=== PATIENT | female | born 1985 | race Caucasian/White ===

== ENCOUNTER 2025-01-26 07:35 | Emergency (ER) | payer SELFPAY ==
[2025-01-26 07:38] VITALS: BP 165/103
--- NOTE | 2025-01-26 07:47 | ED.GENMED ---
History of Present Illness
General
Chief Complaint: Breathing Problem
Source: patient
Exam Limitations: none
Time Seen by Provider: 01/26/25 07:39
History of Present Illness
History of Present Illness:
39-year-old female presents with increasing shortness of breath. History of asthma. She states she is having an asthma attack. No chest pain. She is seen at the urgent care last week and just finished a 5-day course of prednisone. She has been
using her inhalers and most recently used a 10 minutes prior to arrival. She denies any significant relief with her inhaler. She states she is air hungry.
Past History
Past History
ED Past Medical History: Asthma
ED Past Surgical History: None
Social History
Tobacco: Former smoker
Alcohol: Occasional
Drug: None
Personal: Single
Living: with family
Family History
Family History: Other (Noncontributory)
Phy Exam
Physical Exam
Physical Exam:
General: Well-appearing female with increased work of breathing
HEENT: Normocephalic atraumatic
Heart: Tachycardic but regular
Lungs: Diffuse inspiratory and expiratory wheeze
Extremities: No cyanosis
Course
Orders/Labs/Results
Orders:
Orders
01/26/25 07:46
Dexamethasone Sod Phosphate [Decadron] 10 mg IV NOW STA
Ipratropium/Albuterol Sulfate [Duoneb] 3 ml INH R NOW STA
CR Chest Portable - 1 View Urgent
Comment:
Reason For Exam: sob
Reason Study Needs to be Portable: Patient Unstable
01/26/25 09:15
Ipratropium/Albuterol Sulfate [Duoneb] 3 ml INH R NOW ONE
Vital Signs
Initial and Last Documented VS:
Initial Vital Signs
Temp Pulse Resp Pulse Ox
98.4 F 121 20 95
01/26/25 07:36 01/26/25 07:36 01/26/25 07:36 01/26/25 07:36
Last Documented Vital Signs
Temp Pulse Resp BP Pulse Ox
98.4 F 92 13 156/103 94
01/26/25 07:36 01/26/25 11:15 01/26/25 11:15 01/26/25 11:00 01/26/25 11:15
MDM/Problems Addressed
Differential Diagnosis Includes:
Shortness of breath. Differential could include acute asthma attack versus bronchitis versus pneumonia. No risk factors for PE
X-ray pending but will order DuoNeb and Decadron.
*Pulse Oximetry
SaO2: 95
Oxygen Mode of Delivery: Room air
*Critical Care Note
Total Time (30-74mins, 75-104mins- exclusive of procedures): Not Applicable
Update Note
Update Note:
Patient given DuoNeb x 2 and feels much better. No further respiratory distress lungs are clear upon reassessment. Not hypoxic. Will send patient home with nebulizer and nebulizer solution. Will also do 5 more days of steroid. No indication for
admission
ED Attending Note
-
Portions of this chart may have been created with voice recognition software.� Occasional wrong word or��sound alike� substitutions may have occurred due to the inherent limitations of voice recognition software.
Discharge Plan
Departure
Patient Disposition: Home (Routine Discharge)
Date of Disposition: 01/26/25
Time of Disposition: 11:44
Patient with high blood pressure during this ER visit?: No
Discharge Problem:
Asthma exacerbation
Instructions: Asthma, Adult (DC)
Prescriptions:
New
ipratropium-albuterol 0.5 mg-3 mg(2.5 mg base)/3 mL solution for nebulization
3 ml inhalation Q6H PRN (Reason: shortness of breath) Qty: 90 0RF
prednisone 50 mg tablet
50 mg PO DAILY Qty: 5 0RF
No Action
albuterol sulfate [Ventolin HFA] 18 GM HFA aerosol inhaler
18 gm IH Q4HPRN PRN (Reason: wheezing) Qty: 1 0RF
Prednisone
1 tab PO BID
Patient Comments:
Unknown strength
azithromycin 250 MG tablet
250 mg PO DAILY Qty: 6 0RF
prednisone 50 MG tablet
50 mg PO DAILY Qty: 5 0RF
hydrocodone-acetaminophen 1 TABLET tablet
1 tab PO Q4HPRN PRN (Reason: pain) Qty: 12 0RF
cyclobenzaprine 10 MG tablet
10 mg PO TIDPRN PRN (Reason: muscles spasms) Qty: 30 0RF
Referrals:
NONE,* [Family Provider, Internal Medicine]
Activity Restrictions/Additional Instructions:
Use nebulizer as needed. Use steroid as directed. Rest. Return if worse otherwise follow-up with your doctor
Interventions
Interventions:
*Risk Screen - Suicide Last Done: 01/26/25 08:20
*General Assessment Last Done: 01/26/25 08:20
*Neglect/Abuse Screening Last Done: 01/26/25 08:20
*ED- Fall Risk Assessment Last Done: 01/26/25 08:20
*ED COVID-19 Vaccine History Last Done: 01/26/25 08:20
ED- Cardiac Assessment Last Done: 01/26/25 08:21
ED- Pulmonary Assessment Last Done: 01/26/25 08:21
Discharge Date and Time
Print Language: [place] CITIZEN
[2025-01-26] MEDS: DECADRON 10 MG IV (08:16)
[2025-01-26] MEDS: DUONEB 3 ML INH ×2 (08:16→09:22)
[2025-01-26 08:17] VITALS: BP 140/101
[2025-01-26 08:19] VITALS: BMI 43.1
[2025-01-26 09:00] VITALS: BP 153/97
[2025-01-26 10:00] VITALS: BP 162/106
[2025-01-26 11:00] VITALS: BP 156/103
== END 2025-01-26 12:02 | disposition home or self-care (01) ==
LOC: EMR 07:35
PROVIDERS: EMERGENCY PHYSICIAN Student in an Organized Health Care Education/Training Program
DX: J45.901 Unspecified asthma with (acute) exacerbation (principal); Z87.891 Personal history of nicotine dependence
CPT/HCPCS: 96374; 94640; 99284; 71045

== ENCOUNTER 2025-02-13 06:31 | Inpatient (IN) | payer OTHER, SELFPAY ==
[2025-02-12 22:44] VITALS: BP 172/121
[2025-02-12 23:12] VITALS: BMI 41.3
[2025-02-12 23:14] VITALS: BP 140/102
[2025-02-12] MEDS: DUONEB 3 ML INH (23:20)
[2025-02-13] VITALS (16 sets, daily range): BP systolic 134–152; BP diastolic 78–113; BMI 41.5
[2025-02-13] MEDS: DECADRON 10 MG PO (01:03)
[2025-02-13] MEDS: VENTOLIN NEBULES 10 MG INH (01:05)
[2025-02-13] MEDS: MAGNESIUM SULFATE 100 IV (03:12)
[2025-02-13] MEDS: DUONEB 3 ML INH ×6 (03:21→20:32)
[2025-02-13] MEDS: BRETHINE 250 MCG SC (03:32)
[2025-02-13 03:35] LABS: Hematocrit 38.3 % (37.0-47.0); Hemoglobin 13.3 g/dL (12.0-16.0); Mean Corp Hgb Conc. 34.7 g/dL (33.0-37.0); Mean Corpuscular Volume 89.5 fL (81.0-99.0); Nucleated Red Blood Cells % 0 %; Platelet Count 298 10^3/uL (130-400); Red Cell Dist. Width 13.3 % (11.5-14.5)
[2025-02-13 03:56] LABS: ALT (SGPT) 19 U/L (0-35); AST (SGOT) 20 U/L (14-36); Albumin 4.3 g/dl (3.5-5.0); Alkaline Phosphatase 62 U/L (38-126); Blood Urea Nitrogen 15 mg/dl (7-17); Calcium 9.4 mg/dl (8.4-10.2); Carbon Dioxide 18 mmol/L (22-30); Chloride 112 mmol/L (98-107); Estimated Creatinine Clearance > 125 ml/min; Glucose 137 mg/dl (70-99); Potassium 4.2 mmol/L (3.5-5.1); Sodium 139 mmol/L (135-145); Total Protein 7.1 g/dl (6.3-8.2); eGFR > 60.00
--- NOTE | 2025-02-13 05:31 | ED.GENMED ---
History of Present Illness
General
Chief Complaint: Breathing Problem
Source: patient
Time Seen by Provider: 02/13/25 00:14
History of Present Illness
History of Present Illness:
Note:
CHIEF COMPLAINT(S)
Shortness of breath with wheezing.
HISTORY OF PRESENT ILLNESS
The patient is a 39-year-old female with a known history of asthma who presents with complaints of shortness of breath and wheezing. She reports using a nebulizing machine and still has some medications left for it. Approximately two weeks ago, the
patient was prescribed prednisone following a visit to an emergency department and prior to that was given prednisone at an urgent care visit. The patient denies any medical problems and reports no recent fever or chills. Currently, she experiences
expiratory wheezing with very faint inspiratory wheezing, and notes discomfort primarily during the inspiratory phase. She also describes a sensation of chest tightness that feels muscular in nature.
PHYSICAL EXAM
- General: Alert, no acute distress.
- Skin: Warm, dry.
- Head: Normocephalic, atraumatic.
- Neck: Supple, trachea midline.
- Eye Ears, nose, mouth and throat: Oral mucosa moist.
- Cardiovascular: Normal peripheral perfusion, No edema.
- Respiratory: Expiratory wheezing with faint inspiratory wheezing observed; respirations are non-labored.
- Gastrointestinal: Abdomen nondistended
- Back: Normal range of motion, Normal alignment.
- Musculoskeletal: Normal range of motion, normal strength.
- Neurological: Alert and oriented to person, place, time, and situation, No focal neurological deficit observed.
- Psychiatric: Cooperative, appropriate mood & affect.
PLAN
The patient was advised to undergo a prolonged breathing treatment with a nebulizer for one hour. Steroids are to be administered to help reduce inflammation and improve breathing. Follow-up care is recommended to assess the effectiveness of the
treatment.
DIFFERENTIAL DIAGNOSIS
The Differential Diagnosis includes, in no particular order and is not limited to:
1. Asthma exacerbation
Disposition:
SUMMARY OF ENCOUNTER
A 39-year-old female with a known history of asthma presented with acute shortness of breath and wheezing. She received multiple breathing treatments in the emergency department. A chest x-ray was performed to rule out pneumonia, and it returned
negative. Despite treatments, the patient continued to experience wheezing.
DISPOSITION
The patient is to be admitted to the hospitalist service for further management.
ASSESSMENT
The patient is experiencing an acute asthma exacerbation.
INDEPENDENT REVIEW OF LABS AND INTERPRETATION OF TESTS
My independent chest x-ray interpretation shows no evidence of pneumonia.
PATIENT EDUCATION AND COUNSELING
The patient was informed about her acute asthma exacerbation and the need for hospitalization for further treatment and monitoring.
MEDICAL DECISION MAKING
-Complexity of Data Reviewed: Chronic conditions affecting care include asthma. Differential diagnosis includes asthma exacerbation, COPD, bronchitis, pneumonia, allergic reaction, upper respiratory tract infection, heart failure, pulmonary
embolism, GERD, and vocal cord dysfunction.
-Data:
Category 1
My independent interpretation of the chest x-ray shows no evidence of pneumonia.
-Risk:
Escalation of care, including admission, was necessary due to the acute asthma exacerbation and persistent wheezing despite treatment. Hospitalization is required to manage the patients condition effectively and monitor for potential complications.
DIAGNOSIS
Asthma, unspecified - ICD-10 Code: J45.909
Past History
Past History
ED Past Medical History: Asthma
ED Past Surgical History: None
Social History
Tobacco: Former smoker
Alcohol: Occasional
Drug: None
Personal: Single
Living: with family
Family History
Family History: Other (Noncontributory)
Phy Exam
Physical Exam
Physical Exam:
.
Course
Orders/Labs/Results
Orders:
Orders
02/12/25 23:18
Ipratropium/Albuterol Sulfate [Duoneb] 3 ml .ROUTE .STK-MED ONE
02/12/25 23:19
Ipratropium/Albuterol Sulfate [Duoneb] 3 ml INH R NOW ONE
02/13/25 00:50
Albuterol Sulfate [Ventolin Nebules] 10 mg INH R NOW STA
Dexamethasone Pf [Decadron] 10 mg PO NOW STA
02/13/25 02:50
Magnesium Sulfate 1 G/D5w [Magnesium Sulfate] 1 gm in 100 ml IV NOW
02/13/25 02:52
Ipratropium/Albuterol Sulfate [Duoneb] 3 ml INH R NOW ONE
Terbutaline [Brethine] 250 mcg SC NOW STA
02/13/25 02:56
CR Chest - 2 Views Urgent
Comment:
Reason For Exam: dyspnea
02/13/25 03:20
Terbutaline [Brethine] 250 mcg SC NOW STA
02/13/25 03:25
Complete Blood Count/With Diff Urgent
Comprehensive Metabolic Panel Urgent
02/13/25 05:13
Ipratropium/Albuterol Sulfate [Duoneb] 3 ml .ROUTE .STK-MED ONE
02/13/25 05:17
Ipratropium/Albuterol Sulfate [Duoneb] 3 ml INH R NOW ONE
Abnormal Lab Results
02/13/25
03:25
WBC 13.5 H 10^3/uL
(4.8-10.8)
MCH 31.1 H pg
(27.0-31.0)
Abs Immat Gran (auto) 0.1 H 10^3/uL
(0-0.05)
Absolute Neuts (auto) 11.5 H 10^3/uL
(1.4-6.5)
Absolute Lymphs (auto) 1.1 L 10^3/uL
(1.2-3.4)
Immature Gran % 0.6 H %
(0-0.5)
Neutrophils % 85.0 H %
(42.2-75.2)
Lymphocytes % 8.0 L %
(20.5-51.1)
Chloride 112 H mmol/L
(98-107)
Carbon Dioxide 18 L mmol/L
(22-30)
Glucose 137 H mg/dl
(70-99)
02/13/25 03:25
02/13/25 03:25
Vital Signs
Initial and Last Documented VS:
Initial Vital Signs
Temp Pulse Resp BP Pulse Ox
97.7 F 110 24 172/121 96
02/12/25 22:44 02/12/25 22:44 02/12/25 22:44 02/12/25 22:44 02/12/25 22:44
Last Documented Vital Signs
Temp Pulse Resp BP Pulse Ox
97.7 F 112 22 140/89 94
02/12/25 22:44 02/13/25 05:00 02/13/25 05:00 02/13/25 05:06 02/13/25 05:05
*Pulse Oximetry
SaO2: 94
Oxygen Mode of Delivery: Room air
Patient hypoxic: no
*Critical Care Note
Total Time (30-74mins, 75-104mins- exclusive of procedures): 33
comment:
Critical care statement: A total of 33 minutes of critical care time was provided for this patient. This time is separate from time utilized to perform the aforementioned documented procedures. Aggregate critical care time includes only time
during which I was engaged in work directly related to the patient's care, as described above, whether at the bedside or elsewhere in the Emergency Department.
ED Attending Note
-
Portions of this chart may have been created with voice recognition software.� Occasional wrong word or��sound alike� substitutions may have occurred due to the inherent limitations of voice recognition software.
Discharge Plan
Departure
Patient Disposition: Admit
Date of Disposition: 02/13/25
Time of Disposition: 05:36
Presentation/result/management discussed w/ accepting MD/DO: Hospitalist
Condition: Good
Discharge Problem:
Acute asthma exacerbation
Prescriptions:
No Action
albuterol sulfate [Ventolin HFA] 18 GM HFA aerosol inhaler
18 gm IH Q4HPRN PRN (Reason: wheezing) Qty: 1 0RF
albuterol sulfate
1 dose inhalation Q6H PRN (Reason: WHEEZING )
Rx Instructions:
ALBUTEROL NEB
Referrals:
Susan Beltran MD [Family Provider, Family Practice]
Interventions
Interventions:
*Risk Screen - Suicide Last Done: 02/12/25 22:44
*General Assessment Last Done: 02/12/25 23:12
*Neglect/Abuse Screening Last Done: 02/12/25 22:44
*ED- Fall Risk Assessment Last Done: 02/12/25 23:12
*ED COVID-19 Vaccine History Last Done: 02/12/25 23:12
ED- Cardiac Assessment Last Done: 02/12/25 23:15
ED- Pulmonary Assessment Last Done: 02/12/25 23:15
Discharge Date and Time
Print Language: KAZAKH
--- NOTE | 2025-02-13 06:06 | HPS.HSE ---
Family Physician
-
Family Physician: Suasn Beltran
Chief Complaint
-
SOB
History of Present Illness
Patient is a 39y F with PMH significant for asthma and obesity who presents to ED complaining of SOB. Patient states that her symptoms started initially in December of this year. She has only had a rescue inhaler which she states she 'lives on' with
frequent use throughout the day. Since December she has had more severe and persistent symptoms. She has had cough that is occasionally productive of white / yellow mucus. No fevers / chills. No known sick contacts. She was seen at Urgent Care 01/21
and started on steroids. She was seen here in the ED on 01/26 and steroids were extended for another 5 days.
Patient has had ongoing symptoms since that time.
This evening she had severe SOB that did not improve with albuterol. She presented to the ED for further evaluation.
Prior history of cigarette smoking - quit 10-20 years ago. Currently smokes THC daily on average - last smoked about 2 days ago.
Patient feels slightly improved from initial arrival - but reports significant SOB with even the slightest movement / activity here in the ED.
Medical History
Past Medical History
Past Medical History: Reports Other
Additional Past Medical History:
Asthma
Obesity
Past Surgical History: Reports Other
Additional Past Surgical History:
Hand Surgery x 2
Social History
Tobacco: Former Smoker (Quit smoking cigarettes 10-20 years ago.)
Alcohol: Daily (6 beers daily on average. Last drink was 1 week ago.)
Drug: Marijuana (Daily use typically. Last smoked 2 days ago.)
Personal:
Living: With Family
Family History
Family History: Not pertinent
Allergies / Home Medications
Allergies reflects when Allergies were last updated in [facility].
Home Medications with original date entered in [facility]
Allergy/Medication List:
Allergies
Allergy/AdvReac Type Severity Reaction Status Date / Time
NKA - No Known Allergies Allergy Unknown Uncoded 02/12/25 22:44
Home Medications
albuterol sulfate 90 mcg/actuation aerosol inhaler (Ventolin HFA) 18 gm IH Q4HPRN PRN wheezing ##1 07/21/11
albuterol sulfate 1 dose inhalation Q6H PRN WHEEZING 02/12/25
Review of Systems
-
History Source: Patient
A 12 point ROS was completed and negative except as noted: Yes
Constitutional: Reports Fatigue; Denies Fever or Chills
EENT: Denies Sore Throat
Respiratory: Reports Cough and Trouble Breathing
Cardiac: Reports Palpitations; Denies Chest Pain
Abdomen/GI: Denies Abdominal Pain, Nausea, Vomiting or Diarrhea
: Denies Dysuria or Frequency
Musculoskeletal: Denies Joint Pain or Edema
Neurological: Denies Dizzy or Headache
Psych: Denies Depression
Physical Exam
Vital Signs
Vital Signs
Temp Pulse Resp BP Pulse Ox
97.7 F 112 22 140/89 94
02/12/25 22:44 02/13/25 05:00 02/13/25 05:00 02/13/25 05:06 02/13/25 05:32
Physical Exam
General: Other (39y F in mild distress due to dyspnea.)
HEENT: Moist mucous membranes and PERRLA
Respiratory: Other (Diffuse inspratory and expiratory wheezes. No rales / rhonchi.)
Cardiac: S1/S2; No Murmur
GI: Soft, Non Tender, Non Distended and Normal Bowel Sounds
Musculoskeletal: No Clubbing, No Cyanosis and No Edema
Neuro: AO x 3
Laboratory Results
-
02/13/25 03:25
02/13/25 03:25
Laboratory Results
Total Bilirubin 0.5 mg/dl (0.2-1.3) 02/13/25 03:25
AST 20 U/L (14-36) 02/13/25 03:25
ALT 19 U/L (0-35) 02/13/25 03:25
Alkaline Phosphatase 62 U/L (38-126) 02/13/25 03:25
Impression/Plan
-
A/P: Patient is a 39y F with PMH significant for asthma and obesity who presents to ED complaining of SOB.
Asthma with Acute Exacerbation
- Admit for further evaluation and treatment.
- Continue IV steroids, nebs ATC and PRN.
- O2 support as needed.
- Follow for clinical improvement.
- Counseled on smoking cessation (including THC).
- Patient would likely benefit from maintenance inhaler regimen, etc.
- Pulmonary consulted for further evaluation / outpatient follow-up.
Alcohol Use Disorder
- Patient reports usually drinking 6 beers per day.
- Last drink was one week ago (due to SOB issues).
- Monitor MSAS scores, but lower risk for withdrawal one week from last EtOH.
- Patient reports that EtOH is a trigger for her asthma and she should continue to abstain.
Morbid Obesity due to excess calories
- Affects all aspects of care.
- Encourage healthy diet and increased activity with goal of weight loss.
DVT Prophylaxis: Lovenox
Code Status: Full
--- NOTE | 2025-02-13 08:10 | W.PN.HOSP.TC ---
Today's Communication/Plan
-
See plan
Assessment / Plan
Assessment / Plan
Physical Exam
General: Other (39y F in mild distress due to dyspnea.)
HEENT: Moist mucous membranes and PERRLA
Respiratory: Other (Diffuse inspratory and expiratory wheezes. No rales / rhonchi.)
Cardiac: S1/S2; No Murmur
GI: Soft, Non Tender, Non Distended and Normal Bowel Sounds
Musculoskeletal: No Clubbing, No Cyanosis and No Edema
Neuro: AO x 3
A/P:
Asthma with Acute Exacerbation
- Admit for further evaluation and treatment.
- Continue IV steroids, nebs ATC and PRN.
- O2 support as needed.
- Follow for clinical improvement.
- Counseled on smoking cessation (including THC).
- Patient would likely benefit from maintenance inhaler regimen, etc.
- Pulmonary consulted for further evaluation / outpatient follow-up.
- Add Pulmicort inhaler
- Checked influenza and COVID-19 and negative
Alcohol Use Disorder
- Patient reports usually drinking 6 beers per day.
- Last drink was one week ago (due to SOB issues).
- Monitor MSAS scores, but lower risk for withdrawal one week from last EtOH.
- Patient reports that EtOH is a trigger for her asthma and she should continue to abstain.
Morbid Obesity due to excess calories
- Affects all aspects of care.
- Encourage healthy diet and increased activity with goal of weight loss.
DVT Prophylaxis: Lovenox
Code Status: Full
Anticipated Discharge: 24 - 48 hours
Subjective/Interval History
-
Date of Service: February 13, 2025
Patient still having some cough and shortness of breath.
Objective Data
-
Labs:
Laboratory Results
02/13/25
03:25
WBC 13.5 H
Hgb 13.3
Hct 38.3
Plt Count 298
Sodium 139
Potassium 4.2
Chloride 112 H
Carbon Dioxide 18 L
BUN 15
Creatinine 0.6
Glucose 137 H
Calcium 9.4
Total Bilirubin 0.5
AST 20
ALT 19
Alkaline Phosphatase 62
Vital Signs:
Vital Signs
Temp Pulse Resp BP Pulse Ox
97.7 F 119 16 141/95 93
02/12/25 22:44 02/13/25 07:45 02/13/25 07:45 02/13/25 06:00 02/13/25 07:30
[2025-02-13 09:11] LABS: COVID-19 Antigen Negative (Negative)
[2025-02-13] MEDS: DECADRON 6 MG IV ×2 (09:12→15:23)
--- NOTE | 2025-02-13 09:15 | CON.PUL ---
Addendum entered and electronically signed by Sumeet Crabtree MD 02/14/25 00:57:
Patient was seen and evaluated on 02/13/2025
Original Note:
Consultation
Consultation Request
Date/Time Consultation Requested: 02/13/2025755
Date/Time Consultation Performed: 02/13/2025 - 909
Requesting Provider: Dr. Jay
Performing Provider: Dr. Crabtree
Reason for Consultation: SOB/asthma flare
Medical History
-
Chief Complaint: SOB
History of Present Illness:
39-year-old morbidly obese female former tobacco smoker with a past medical history of asthma who presents with worsening SOB with wheezing. She had gone into a steam room in December, and that seems to have caused worsening of her asthma. She went to
Urgent Care on 01/15/2025, and Dx with asthma exacerbation. Given 60mg prednisone and a DuoNebs treatment, and DC'd with prednisone 50mg daily x 5 days. She improved but once the steroids stopped, she had worsening SOB again. Came to ER here at
on 01/26/2025, CXR showed no evidence for PNA, and she was given Decadron 10mg IV x1 and DuoNebs, and DC'd with DuoNebs with nebulizer kit, and another prednisone course (50mg daily x 5 days). She again felt better until the steroids finished. She
has been taking her rescue inhaler 7-10 times a day. She has been feeling SOB with minimal activity, and has SOB with dry cough at night. Returned to ER on 02/13/2025, and given Decadron in the ER, albuterol, DuoNebs, magnesium and terbutaline. She
was afebrile, NH 110, RR 24, BP 172/121 and SpO2 96% on room air. Initial labs pertinent for WBC 13.5, absolute eos 500, and covid-19 antigen negative. CXR was negative for an acute cardiopulmonary pathology. Flu swab also negative. Admitted to
hospitalist service, and now pulmonary consulted for additional management/recommendations.
When I saw the pt, she was resting in bed, , Oskar, at bedside. She says that she is feeling better, but still SOB with exertion. HR 105 and SpO2 94% on room air. She has 3 cats and 1 dog at home, but she has been living with these animals
for some time and her asthma symptoms only recently worsened this past December. Prior to this, she used to have mild asthmatic symptoms with rare use of albuterol (every 6 months would use her rescue inhaler). She has no birds. 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
[employer]. Pt currently denies chest pain, WEEKS, abd pain, N/V/f/c, and denies recent sick contacts or a recent illness that preceded her symptoms.
PMHx: Asthma, allergic rhinitis, chronic LBP with right-sided sciatica
PSHx: Non-contributory
Past Medical History
Past Medical History: Other (Above as per HPI)
Past Surgical History: Other (Above as per HPI)
Social History
Tobacco: Former Smoker
Alcohol: Occasional
Drug: Marijuana (Daily)
Personal:
Living: With Family (: Oskar)
Allergies / Home Medications
Allergies
Allergy/AdvReac Type Severity Reaction Status Date / Time
NKA - No Known Allergies Allergy Unknown Uncoded 02/12/25 22:44
Home Medications
�Medication �Instructions �Recorded �Confirmed �Last Taken �Type
albuterol sulfate 90 mcg/actuation 18 gm IH Q4HPRN PRN wheezing ##1 07/21/11 02/12/25 01/05/13 Rx
aerosol inhaler (Ventolin HFA)
albuterol sulfate 1 dose inhalation Q6H PRN WHEEZING 02/12/25 02/12/25 Unknown History
Review of Systems
-
History Source: Patient
All other systems: Negative unless noted
Vitals / Labs / Diagnostic Testing
Vital Signs
Temp Pulse Resp BP Pulse Ox
97.8 F 106 14 141/95 94
02/13/25 07:50 02/13/25 08:59 02/13/25 08:59 02/13/25 06:00 02/13/25 08:59
Lab Data
02/13/25 03:25
02/13/25 03:25
Microbiology
02/13/25 08:43 Nasal Swab Influenza Types A & B (SOLA) - Final
Negative for Influenza A & B, NAAT
Negative results must be combined with clinical observations
and patient history.
Nucleic Acid Amplification test (NAAT)performed on the
[employer] platform.
Diagnostic Testing:
Physical Exam
-
HEENT: Normocephalic, Anicteric and Other (thick neck)
Cardiovascular: S1/S2, Rub (negative) and Peripheral Edema (negative)
Respiratory: Wheeze (Spink bilaterally), Rales (negative), Rhonchi (negative), Non-Labored Respirations and Other (no stridor appreciated on exam)
GI: Soft, Distended (abdominal obesity), Non Tender and Normal Bowel Sounds
Neurology: AO x 3 and Tremors (negative)
Skin: Warm and Dry
General: Respiratory Distress (negative), Comfortable, Fever (negative) and Chills (negative)
Assessment
-
Assessment: 39-year-old morbidly obese female former tobacco smoker with a past medical history of asthma who presents with worsening SOB with wheezing. She had gone into a steam room in December, and that seems to have caused worsening of her asthma.
She went to Urgent Care on 01/15/2025, and Dx with asthma exacerbation. Given 60mg prednisone and a DuoNebs treatment, and DC'd with prednisone 50mg daily x 5 days. She improved but once the steroids stopped, she had worsening SOB again. Came to ER
here at on 01/26/2025, CXR showed no evidence for PNA, and she was given Decadron 10mg IV x1 and DuoNebs, and DC'd with DuoNebs with nebulizer kit, and another prednisone course (50mg daily x 5 days). She again felt better until the steroids
finished. She has been taking her rescue inhaler 7-10 times a day. She has been feeling SOB with minimal activity, and has SOB with dry cough at night. Returned to ER on 02/13/2025, and given Decadron in the ER, albuterol, DuoNebs, magnesium and
terbutaline. She was afebrile, NH 110, RR 24, BP 172/121 and SpO2 96% on room air. Initial labs pertinent for WBC 13.5, absolute eos 500, and covid-19 antigen negative. CXR was negative for an acute cardiopulmonary pathology. Flu swab also
negative. Admitted to hospitalist service, and now pulmonary consulted for additional management/recommendations.
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
Impression:
#Acute asthma exacerbation
#Increased eosinophil count (absolute eosinophils: 500 on 02/13/2025
#Hx of alcohol use disorder
#Morbid obesity
#THC use
#Allergic rhinitis
#Chronic lower back pain with right-sided sciatica
Plan:
- Continue with systemic steroids for treatment for asthma exacerbation
- Wean as she clinically improves � currently on 6 mg Decadron IV q8hr
- DuoNebs QID with budesonide BID
- prn nebulized bronchodilators
- She will need to be discharged home on a long-acting maintenance inhaler, preferably a LABA/ICS like Symbicort 160 mcg vs Breo 200 mcg (or an equivalent inhaler); if these are too expensive, then would transition everything to nebulizers, which
would be aformoterol + budesonide with prn albuterol
- She already has a nebulizer kit at home
- With her admission labs showing an absolute eosinophil count of 500, believe that she has type II inflammation largely contributing to her symptoms
- Will need to see her in office to follow her symptoms and discuss biologic therapy if she remains uncontrolled (see below)
- Check IgE level (pending)
- Maintain SpO2 >90-94% with supplemental O2 as needed
- Incentive spirometer encouraged q1hr while awake
- Replete electrolytes with K>4, Mg>2
- Trend H/H and transfuse if needed to keep Hb>7g/dL; keep plt>20k, unless there is concern for bleeding then keep plt>50k
- Maintain euglycemia with goal BG >100 and <180
- Advised her to stop smoking marijuana as this will also contribute to her asthmatic symptoms
- DVT ppx: LMWH
Pulmonary service will continue to follow along. Given that her absolute eosinophils are 500 from admission, if her asthma is not controlled on maximal inhaler therapy, she would be a candidate for Dupixent. The issue is that she does not have
health insurance. This will be further discussed in the pulmonary office, which I will arrange for her.
Data:
CXR 02/13/2025: No evidence of active cardiopulmonary disease
Total time spent today was 58 minutes for this encounter. Time includes reviewing laboratory test/imaging results, reviewing pertinent medical records, obtaining and reviewing medical history, performing an appropriate exam, ordering medications,
tests and procedures. Time also includes documentation of this encounter, coordinating patient care and communicating with other healthcare professionals. Total time does not include separately billed tests performed on this date of service.
--- NOTE | 2025-02-13 09:41 | PTCARENOTE ---
Patient arrived from ER via stretcher due to asthma exacerbation. Patient with expiratory and inspiratory wheezing upon arrival. Pulse ox 94% on room air. Orthopnea and dyspnea with exertion. Patient stated that she vapes marijuana occasionally at
home, has cut down on drinking alcohol since she has been sick. Has a history of suicidal ideation when she was in high school. Discussed the admission findings with Dr. Elena. MSAS score 0 at this time. Patient denying pain when asked, eating
breakfast in room with at bedside.
[2025-02-13] MEDS: TYLENOL 650 MG PO (10:58)
[2025-02-13] MEDS: PULMICORT 0.5 MG INH ×2 (11:36→20:32)
--- NOTE | 2025-02-13 16:47 | CM ---
Patient with Asthma with Acute Exacerbation, Alcohol Use Disorder. Room air. Receiving IV Steroids. Per nurse; MSAS 2, ambulatory in room.
Met with patient, son Elder and his girlfriend Thelma;
the patient resides with his SO Oskar in a 1 story house with 4 BRAXTON.
She was independent in ADLs and ambulation.
The patient was active, working and going to the gym 7 days/week
DME - nebulizer
No prior VN
PCP - Susan Beltran
Pharmacy - [facility], [place]
Offered patient [facility] for programs/resources for Etoh use. Patient declined saying she will be stopping drinking on her own.
Plan home.
--- NOTE | 2025-02-13 16:55 | CM ---
Patient with Asthma with Acute Exacerbation, Alcohol Use Disorder. Room air. Receiving IV Steroids. Per nurse; MSAS 2, ambulatory in room.
Met with patient, son Elder and his girlfriend Thelma;
the patient resides with her SO Oskar in a 1 story house with 4 [address]RAXTON.
She was independent in ADLs and ambulation.
The patient was active, working and going to the gym 7 days/week.
DME - nebulizer
No prior VN
PCP - Susan Beltran
Pharmacy - [facility], [place]
Offered patient [facility] for programs/resources for Etoh use. Patient declined saying she will stop drinking on her own.
Plan home.
[2025-02-13] MEDS: LOVENOX 40 MG SC (17:35)
--- NOTE | 2025-02-13 21:29 | PTCARENOTE ---
Assumed care for patient overnight, received report from stephanie RN. Pt AAOx3. SpO2 94% on room air. Pt has inspiratory wheeze but denies SOB or increased WOB. Pt dyspneic with exertion. Pt has a dry occasional cough. Pt up and into the bathroom
independently for self care. Sinus tach on the monitor HR 108. At rest HR down to 95. Pt has no complaints at this time. Pt at the bedside. Call dasilva is within reach.
[2025-02-14] VITALS (16 sets, daily range): BP systolic 98–153; BP diastolic 55–102; BMI 41.7
[2025-02-14] MEDS: DECADRON 6 MG IV ×3 (00:25→19:39)
[2025-02-14] MEDS: ROBITUSSIN 200 MG PO ×3 (00:25→17:01)
[2025-02-14 05:40] LABS: Hematocrit 39.7 % (37.0-47.0); Hemoglobin 13.3 g/dL (12.0-16.0); Mean Corp Hgb Conc. 33.5 g/dL (33.0-37.0); Mean Corpuscular Volume 91.5 fL (81.0-99.0); Platelet Count 361 10^3/uL (130-400); Red Cell Dist. Width 13.4 % (11.5-14.5)
[2025-02-14 05:59] LABS: Blood Urea Nitrogen 12 mg/dl (7-17); Calcium 9.7 mg/dl (8.4-10.2); Carbon Dioxide 19 mmol/L (22-30); Chloride 113 mmol/L (98-107); Estimated Creatinine Clearance > 125 ml/min; Glucose 148 mg/dl (70-99); Potassium 4.9 mmol/L (3.5-5.1); Sodium 139 mmol/L (135-145); eGFR > 60.00
[2025-02-14] MEDS: DUONEB 3 ML INH ×4 (07:11→20:14)
[2025-02-14] MEDS: PULMICORT 0.5 MG INH ×2 (07:12→20:14)
--- NOTE | 2025-02-14 08:03 | W.PN.HOSP.TC ---
Today's Communication/Plan
-
Continue steroids
Assessment / Plan
Assessment / Plan
Physical exam:
General: Well Developed, Well Nourished and No Apparent Distress
HEENT: Normocephalic, Atraumatic and Moist Mucous Membranes
Respiratory: Denies wheezes today. Relatively clear to Auscultation; Negative Rales or Rhonchi
Cardiac: Regular Rhythm and S1/S2
GI: Soft, Nontender and Nondistended
Musculoskeletal: No Clubbing, No Cyanosis and No Edema
Neuro: Awake, Alert and Oriented
Psych: Calm
A/P:
Asthma with Acute Exacerbation
Continue IV steroids but taper down to every 12 hours today and will switch to oral tomorrow
Continue inhalers/nebs
Pulmonary input appreciated
Hyperglycemia
Insulin sliding scale
Check hemoglobin A1c
Alcohol Use Disorder and cannabinoid use
- No withdrawal
Morbid Obesity due to excess calories
- Affects all aspects of care.
- Encourage healthy diet and increased activity with goal of weight loss.
DVT Prophylaxis: Lovenox
Code Status: Full
Anticipated Discharge: Within 24 hours
Subjective/Interval History
-
Date of Service: February 14, 2025
Patient feels better overall. Afebrile. On room air
Objective Data
-
Labs:
Laboratory Results
02/14/25
05:26
WBC 16.2 H
Hgb 13.3
Hct 39.7
Plt Count 361 D
Sodium 139
Potassium 4.9
Chloride 113 H
Carbon Dioxide 19 L
BUN 12
Creatinine 0.5 L
Glucose 148 H
Calcium 9.7
Vital Signs:
Vital Signs
Temp Pulse Resp BP Pulse Ox
97.9 F 103 20 125/96 96
02/14/25 03:00 02/14/25 07:15 02/14/25 07:15 02/14/25 06:00 02/14/25 07:15
I&O
02/13/25 02/14/25 02/15/25
06:59 06:59 06:59
Intake Total 120 / 120
Balance 120 / 120
[2025-02-14 08:12] LABS: Glucose - Point of Care 161 mg/dl (70-99)
[2025-02-14] MEDS: NOVOLOG FLEXPEN-MODERATE RESISTANCE 1 UNITS SC (08:45)
[2025-02-14] MEDS: TYLENOL 650 MG PO (08:46)
[2025-02-14 12:14] LABS: Glucose - Point of Care 143 mg/dl (70-99)
[2025-02-14] MEDS: NOVOLOG FLEXPEN-MODERATE RESISTANCE SC ×2 (12:43→16:59)
--- NOTE | 2025-02-14 12:46 | PTCARENOTE ---
MSAS score 1 today due to heart rate 89. Patient stating that she is feeling much better. Occasional cough improved from yesterday. Heart rate Normal Sinus as compared to tachycardia yesterday. Mild throat pain relieved with Tylenol, cough treated
with Robitussin. Patients pulse ox 93% on room air at this time.
--- NOTE | 2025-02-14 12:56 | PTCARENOTE ---
Patients blood pressure is 150/94 at [address] time. Notified Dr. Elena of blood pressure trends. Patient is asymptomatic when asked at this time.
--- NOTE | 2025-02-14 15:55 | W.PN.PUL3 ---
Today's Communication / Plan
-
Decrease Decadron to every 8 hours 4 mg
Continue nebulizer regimen
GERD therapy
Head of bed elevated
Follow-up IgE level
Okay for transfer to telemetry from pulmonary standpoint. Pulmonary will continue to follow
Assessment
-
Assessment: 39-year-old morbidly obese female former tobacco smoker with a past medical history of asthma who presents with worsening SOB with wheezing. She had gone into a steam room in December, and that seems to have caused worsening of her asthma.
She went to Urgent Care on 01/15/2025, and Dx with asthma exacerbation. Given 60mg prednisone and a DuoNebs treatment, and DC'd with prednisone 50mg daily x 5 days. She improved but once the steroids stopped, she had worsening SOB again. Came to ER
here at on 01/26/2025, CXR showed no evidence for PNA, and she was given Decadron 10mg IV x1 and DuoNebs, and DC'd with DuoNebs with nebulizer kit, and another prednisone course (50mg daily x 5 days). She again felt better until the steroids
finished. She has been taking her rescue inhaler 7-10 times a day. She has been feeling SOB with minimal activity, and has SOB with dry cough at night. Returned to ER on 02/13/2025, and given Decadron in the ER, albuterol, DuoNebs, magnesium and
terbutaline. She was afebrile, MD 110, RR 24, BP 172/121 and SpO2 96% on room air. Initial labs pertinent for WBC 13.5, absolute eos 500, and covid-19 antigen negative. CXR was negative for an acute cardiopulmonary pathology. Flu swab also
negative. Admitted to hospitalist service, and now pulmonary consulted for additional management/recommendations.
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
Impression:
#Acute asthma exacerbation
#Increased eosinophil count (absolute eosinophils: 500 on 02/13/2025
#Hx of alcohol use disorder
#Morbid obesity
#THC use
#Allergic rhinitis
#Chronic lower back pain with right-sided sciatica
Plan/recommendations
At this time, patient appears to be objectively and subjectively improved
Feels breathing is 2/10, presented with 10/10 symptoms
Still with mild wheezing
Symptoms have been a problem since December of this year
Moving forward
Continue with systemic steroids
Will decrease to 4 mg every 8 hours
DuoNebs QID with budesonide BID
She will need to be discharged home on a long-acting maintenance inhaler, preferably a LABA/ICS like Symbicort 160 mcg vs Breo 200 mcg (or an equivalent inhaler); if these are too expensive, then would transition everything to nebulizers, which
would be aformoterol + budesonide with prn albuterol
- She already has a nebulizer kit at home
With her admission labs showing an absolute eosinophil count of 500, believe that she has type II inflammation largely contributing to her symptoms
- Will need to see her in office to follow her symptoms and discuss biologic therapy if she remains uncontrolled (see below)
- Check IgE level (pending)
Advised her to stop smoking marijuana as this will also contribute to her asthmatic symptoms
DVT ppx: LMWH
Okay for transfer from IMU to telemetry
Disposition efforts
Data:
CXR 02/13/2025: No evidence of active cardiopulmonary disease
Total time spent today was 58 minutes for this encounter. Time includes reviewing laboratory test/imaging results, reviewing pertinent medical records, obtaining and reviewing medical history, performing an appropriate exam, ordering medications,
tests and procedures. Time also includes documentation of this encounter, coordinating patient care and communicating with other healthcare professionals. Total time does not include separately billed tests performed on this date of service.
Subjective Data
-
Date of Service:
Date of Service: February 14, 2025
Subjective:
Patient seen and examined earlier this morning. Patient has improved although still with chest tightness, shortness of breath and wheeze. at bedside
Objective Data
Data Reviewed
Vital Signs / I&O / Oxygen:
Vital Signs
Temp Pulse Resp BP Pulse Ox
98.1 F 100 23 149/99 94
02/14/25 11:50 02/14/25 15:33 02/14/25 15:33 02/14/25 15:33 02/14/25 15:33
Intake and Output
02/13/25 02/14/25 02/15/25
06:59 06:59 06:59
Intake Total 120 / 120
Balance 120 / 120
SaO2 94
Nasal Cannula flow liters per 97
minute
Physical Exam
General: Comfortable and Other (Large neck)
HEENT: Normocephalic and Anicteric
Cardiovascular: S1-S2, Regular Rhythm, Murmur (n), Rub (n) and Peripheral Edema (n)
Respiratory: Wheeze (Scattered), Crackles (n), Rhonchi (n) and Non-Labored Respirations
GI: Soft, Non Distended and Non Tender
Neurology: Awake, Alert and No Motor Deficits
Skin: Good Color, Jaundice (n) and Rash (n)
Labs/Micro/Reports
Lab Data
02/14/25 05:26
02/14/25 05:26
Microbiology
02/13/25 08:43 Nasal Swab Influenza Types A & B (SOLA) - Final
Negative for Influenza A & B, NAAT
Negative results must be combined with clinical observations
and patient history.
Nucleic Acid Amplification test (NAAT)performed on the
[employer] platform.
[2025-02-14] MEDS: APRESOLINE 10 MG IV (16:11)
[2025-02-14] MEDS: LOVENOX 40 MG SC (17:01)
[2025-02-14 17:09] LABS: Glucose - Point of Care 120 mg/dl (70-99)
[2025-02-14 22:00] LABS: Glucose - Point of Care 113 mg/dl (70-99)
[2025-02-15] VITALS (8 sets, daily range): BP systolic 111–135; BP diastolic 75–94; BMI 41.2
--- NOTE | 2025-02-15 03:33 | PTCARENOTE ---
Assumed care for patient overnight. Pt remains on room air SpO2 94%. HR 70. Pt has dry occasional cough but appears to be improving per the patient. Pt ambulating in the hallways independently. at the bedside. No complaints overnight. IV
Decadron cont. Call dasilva within reach.
[2025-02-15 05:46] LABS: Blood Urea Nitrogen 16 mg/dl (7-17); Calcium 9.7 mg/dl (8.4-10.2); Carbon Dioxide 22 mmol/L (22-30); Chloride 112 mmol/L (98-107); Estimated Creatinine Clearance > 125 ml/min; Glucose 123 mg/dl (70-99); Potassium 4.7 mmol/L (3.5-5.1); Sodium 139 mmol/L (135-145); eGFR > 60.00
[2025-02-15] MEDS: PULMICORT 0.5 MG INH (06:06)
[2025-02-15] MEDS: DUONEB 3 ML INH ×2 (06:06→10:25)
[2025-02-15] MEDS: DELTASONE 40 MG PO (08:17)
[2025-02-15 08:46] LABS: Glucose - Point of Care 142 mg/dl (70-99)
[2025-02-15] MEDS: NOVOLOG FLEXPEN-MODERATE RESISTANCE SC (09:57)
--- NOTE | 2025-02-15 10:13 | PTCARENOTE ---
Patient states that her breathing is good. Denies any SOB or difficulty breathing. Occasional dry cough. Sp02 95% RA. Lungs clear, diminished on right side. Patient self in care, ambulating in room. in room at bedside. VS stable.
--- NOTE | 2025-02-15 11:02 | W.PN.HOSP.TC ---
Today's Communication/Plan
-
Discharge planning today
Assessment / Plan
Assessment / Plan
Physical exam:
General: Well Developed, Well Nourished and No Apparent Distress
HEENT: Normocephalic, Atraumatic and Moist Mucous Membranes
Respiratory: No wheezes today. Relatively clear to Auscultation; Negative Rales or Rhonchi
Cardiac: Regular Rhythm and S1/S2
GI: Soft, Nontender and Nondistended
Musculoskeletal: No Clubbing, No Cyanosis and No Edema
Neuro: Awake, Alert and Oriented
Psych: Calm
A/P:
Asthma with Acute Exacerbation
Steroids tapered to oral today
Continue inhalers/nebs
Pulmonary input appreciated
Plan to discharge today
Hyperglycemia
Insulin sliding scale
Check hemoglobin A1c
Alcohol Use Disorder and cannabinoid use
- No withdrawal
Morbid Obesity due to excess calories
- Affects all aspects of care.
- Encourage healthy diet and increased activity with goal of weight loss.
DVT Prophylaxis: Lovenox
Code Status: Full
Anticipated Discharge: Today
Subjective/Interval History
-
Date of Service: February 15, 2025
Patient feels better today.
Objective Data
-
Labs:
Laboratory Results
02/15/25
04:54
Sodium 139
Potassium 4.7
Chloride 112 H
Carbon Dioxide 22
BUN 16
Creatinine 0.6
Glucose 123 H
Calcium 9.7
Vital Signs:
Vital Signs
Temp Pulse Resp BP Pulse Ox
97.6 F 82 16 125/94 95
02/15/25 08:32 02/15/25 10:27 02/15/25 10:27 02/15/25 08:09 02/15/25 10:12
I&O
0702/15/25 02/16/25
06:59 06:59 06:59
Intake Total 120 / 120 480 / 480 480 / 480
Balance 120 / 120 480 / 480 480 / 480
--- NOTE | 2025-02-15 11:03 | W.DCSUMMARY ---
Discharge Summary
Discharge Data
Date of Admission: 02/13/25
Date of Discharge: 02/15/25
Total time spent discharging patient (in min): 33
-
Pending Results: No
Hospital Course
Patient 39 years old female with history of asthma came into the hospital with shortness of breath and wheezing found to have asthma exacerbation. Patient had been treated with a course of steroids prior to her presentation. Pulmonary was
consulted. Patient was treated with bronchodilators and IV steroids. She was also found to have eosinophilia and IgE was sent out pending results and will follow-up as outpatient. She was also instructed on abstinence of nicotine, alcohol, and
cannabinoid. Patient had mild hyperglycemia while on steroids and she was given some insulin coverage and hemoglobin A1c pending and can follow-up as outpatient. Patient also had elevated blood pressure but only one reading therefore recommended
to monitor blood pressure as outpatient and no need for any medications at the moment. We were able to taper her steroids back to oral. Pulmonary cleared her for discharge today. She is on room air. She is afebrile. She is hemodynamically
stable. She will be discharged in relatively stable condition today.
Discharge duration: 33 minutes
Discharge Plan
-
Patient Disposition: Home (Routine Discharge)
Discharge Diagnosis/Procedures: Acute asthma exacerbation. Cannabinoid use. Alcohol use disorder. Allergic rhinitis. Chronic lower back pain.
Diet: Low Cholesterol
Activity: As tolerated
Blood Work: Please PCP to order CBC, BMP within 1 week
Stand Alone Forms: Return to Work
Referrals:
Sumeet Crabtree MD [Active, Pulmonary Medicine] - in one to two weeks
Referral Note: bubba on day of office visit
will need full PFT in 3 mo
Susan Beltran MD [Family Provider, Family Practice] - in less than 1 week
Prescriptions:
New
prednisone 10 mg Tablet
See Rx Instructions .ROUTE .COMPLEX Qty: 45 0RF
Rx Instructions:
Take By Mouth:
50 mg daily x3 days, 40 mg daily x3 days,
30 mg daily x3 days, 20 mg daily x3 days,
10 mg daily x3 days
budesonide-formoterol [Symbicort] 160-4.5 mcg/actuation HFA aerosol inhaler
2 puff inhalation BID Qty: 10.2 0RF
famotidine [Pepcid] 20 mg tablet
20 mg PO DAILY Qty: 30 0RF
Continued
albuterol sulfate [Ventolin HFA] 18 GM HFA aerosol inhaler
18 gm IH Q4HPRN PRN (Reason: wheezing) Qty: 1 0RF
albuterol sulfate
1 dose inhalation Q6H PRN (Reason: WHEEZING )
Rx Instructions:
ALBUTEROL NEB
Discharge Orders:
Discharge Patient (As Directed); Ordered 02/15/25
Ordered By: Jonathan Elena
Discharge Date and Time
Print Language: OCCITAN
--- NOTE | 2025-02-15 11:32 | W.PN.PUL3 ---
Today's Communication / Plan
-
Transition to prednisone, taper by 10 mg every 3 days till off
Would discharge on Symbicort 160/4.5, 2 puffs twice a day
Empiric GERD therapy
Continue albuterol as needed, nebulized albuterol
Follow-up in pulmonary office in the next few weeks. Information left in chart
Disposition efforts
Assessment
-
Assessment: 39-year-old morbidly obese female former tobacco smoker with a past medical history of asthma who presents with worsening SOB with wheezing. She had gone into a steam room in December, and that seems to have caused worsening of her asthma.
She went to Urgent Care on 01/15/2025, and Dx with asthma exacerbation. Given 60mg prednisone and a DuoNebs treatment, and DC'd with prednisone 50mg daily x 5 days. She improved but once the steroids stopped, she had worsening SOB again. Came to ER
here at on 01/26/2025, CXR showed no evidence for PNA, and she was given Decadron 10mg IV x1 and DuoNebs, and DC'd with DuoNebs with nebulizer kit, and another prednisone course (50mg daily x 5 days). She again felt better until the steroids
finished. She has been taking her rescue inhaler 7-10 times a day. She has been feeling SOB with minimal activity, and has SOB with dry cough at night. Returned to ER on 02/13/2025, and given Decadron in the ER, albuterol, DuoNebs, magnesium and
terbutaline. She was afebrile, OK 110, RR 24, BP 172/121 and SpO2 96% on room air. Initial labs pertinent for WBC 13.5, absolute eos 500, and covid-19 antigen negative. CXR was negative for an acute cardiopulmonary pathology. Flu swab also
negative. Admitted to hospitalist service, and now pulmonary consulted for additional management/recommendations.
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
Impression:
#Acute asthma exacerbation
#Increased eosinophil count (absolute eosinophils: 500 on 02/13/2025
#Hx of alcohol use disorder
#Morbid obesity
#THC use
#Allergic rhinitis
#Chronic lower back pain with right-sided sciatica
Plan/recommendations
At this time, patient appears to be objectively and subjectively improved
Wheezing has improved
Ambulating without difficulty
Symptoms have been a problem since December of this year
Moving forward
Continue with systemic steroids
Transition oral prednisone, taper by 10 mg every 3 days till off
DuoNebs QID with budesonide BID
Will need discharge with maintenance inhaler, prefer Symbicort 160/4.5, 2 puffs twice a day or equivalent
Patient will continue with albuterol at home. She already has an nebulizer machine
Would recommend discharge with current therapy
IgE level pending
Advised her to stop smoking marijuana as this will also contribute to her asthmatic symptoms
DVT ppx: LMWH
Recommend follow-up in the pulmonary office in the next 2 weeks. Information left in chart
Reviewed with primary service
Reviewed importance of compliance with medications and follow-up
Disposition efforts
Data:
CXR 02/13/2025: No evidence of active cardiopulmonary disease
Total time spent today was 58 minutes for this encounter. Time includes reviewing laboratory test/imaging results, reviewing pertinent medical records, obtaining and reviewing medical history, performing an appropriate exam, ordering medications,
tests and procedures. Time also includes documentation of this encounter, coordinating patient care and communicating with other healthcare professionals. Total time does not include separately billed tests performed on this date of service.
Subjective Data
-
Date of Service:
Date of Service: February 15, 2025
Subjective:
Patient feeling much improved overall. Ambulating in the hallway without difficulty. Denies chest pain, significant cough, nausea, abdominal pain
Objective Data
Data Reviewed
Vital Signs / I&O / Oxygen:
Vital Signs
Temp Pulse Resp BP Pulse Ox
97.6 F 82 16 125/94 95
02/15/25 08:32 02/15/25 10:27 02/15/25 10:27 02/15/25 08:09 02/15/25 10:12
Intake and Output
02/14/25 02/15/25 02/16/25
06:59 06:59 06:59
Intake Total 120 / 120 480 / 480 480 / 480
Balance 120 / 120 480 / 480 480 / 480
SaO2 95
Nasal Cannula flow liters per 95
minute
Physical Exam
General: Comfortable and Other (Large neck)
HEENT: Normocephalic and Anicteric
Cardiovascular: S1-S2, Regular Rhythm, Murmur (n), Rub (n) and Peripheral Edema (n)
Respiratory: Wheeze (No wheeze), Crackles (n), Rhonchi (n) and Non-Labored Respirations
GI: Soft, Non Distended and Non Tender
Neurology: Awake, Alert and No Motor Deficits
Skin: Good Color, Jaundice (n) and Rash (n)
Labs/Micro/Reports
Lab Data
02/14/25 05:26
02/15/25 04:54
Microbiology
02/13/25 08:43 Nasal Swab Influenza Types A & B (SOLA) - Final
Negative for Influenza A & B, NAAT
Negative results must be combined with clinical observations
and patient history.
Nucleic Acid Amplification test (NAAT)performed on the
[employer] platform.
[2025-02-15 12:00] LABS: Glycohemoglobin (HgbA1c) 5.6 % (4.0-5.6)
--- NOTE | 2025-02-15 12:27 | CM ---
Patient with Asthma with Acute Exacerbation, Alcohol Use Disorder. Room air. MSAS 0 per nurse.
Spoke with patient who was preparing for discharge.
The patient says she feels ready to go home today.
Her will provide transport home today.
The patient is requesting a note from the doctor for the 3 days she missed work while here in the hospital, from 02/13 to today---> message to Dr Elena - work note provided.
Plan home today.
== END 2025-02-15 13:15 | disposition home or self-care (01) | DRG 202 ==
LOC: IMU 06:31
PROVIDERS: ADMITTING PHYSICIAN Hospitalist; ATTENDING PHYSICIAN Hospitalist; EMERGENCY PHYSICIAN Student in an Organized Health Care Education/Training Program; FAMILY PHYSICIAN Family Medicine; OTHER PHYSICIAN Internal Medicine Critical Care Medicine
DX: J45.901 Unspecified asthma with (acute) exacerbation (principal); Z68.41 Body mass index [BMI] 40.0-44.9, adult; F12.90 Cannabis use, unspecified, uncomplicated; E66.01 Morbid (severe) obesity due to excess calories; F10.10 Alcohol abuse, uncomplicated; Z71.6 Tobacco abuse counseling; F17.200 Nicotine dependence, unspecified, uncomplicated; G89.29 Other chronic pain; M54.41 Lumbago with sciatica, right side; Z59.71 Insufficient health insurance coverage
CPT/HCPCS: 71046; 80048; 80053; 82785; 82962; 83036; 85025; 85027; 87502; 87811; 94640; 96365; 96372; 99291

== ENCOUNTER 2025-07-12 17:58 | Emergency (ER) | payer SELFPAY ==
[2025-07-12 18:01] VITALS: BP 201/151
[2025-07-12 18:08] VITALS: BP 183/119
[2025-07-12] MEDS: DECADRON 10 MG PO (18:12)
[2025-07-12] MEDS: DUONEB 3 ML INH (18:12)
[2025-07-12 18:19] VITALS: BMI 44.3
[2025-07-12 19:00] VITALS: BP 146/90
[2025-07-12] MEDS: VENTOLIN NEBULES 10 MG INH (19:48)
--- NOTE | 2025-07-12 20:45 | ED.GENMED ---
History of Present Illness
General
Chief Complaint: Breathing Problem
Time Seen by Provider: 07/12/25 18:06
History of Present Illness
History of Present Illness:
Note:
CHIEF COMPLAINT(S)
Asthma exacerbation.
HISTORY OF PRESENT ILLNESS
The patient is a 40-year-old female with a history of asthma, presenting with an exacerbation of her symptoms. She reports that her symptoms have worsened over the past month, similar to an episode in February. The last exacerbation improved with
steroids, specifically prednisone. The patient mentioned running out of her medication and self-discontinuing her steroid treatment, which involved taking 50 mg daily for five days before tapering. She experiences exacerbations when exposed to
certain triggers at home, notably while cooking with cast iron pans, which she reports causes her symptoms to flare.
PAST MEDICAL AND SURGICAL HISTORY
The patient reports a history of hand surgery a few years ago and a section.
SOCIAL HISTORY
The patient reports daily use of cannabis (specifically carts) and consumes one can of alcohol daily. 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
PHYSICAL EXAM
General: Alert, no acute distress.
Skin: Warm, dry.
Head: Normocephalic, atraumatic.
Neck: Supple, trachea midline.
Eye, Ears, Nose, and Mouth: Oral mucosa moist.
Cardiovascular: Normal peripheral perfusion, No edema.
Respiratory: Respirations are labored with wheezing throughout. Improved after first breathing treatment, nonexistent after hour-long treatment
Gastrointestinal: Abdomen non-distended.
Back: Normal range of motion, Normal alignment.
Musculoskeletal: Normal range of motion, normal strength.
Neurological: Alert and oriented to person, place, time, and situation, No focal neurological deficit observed.
Psychiatric: Cooperative, appropriate mood & affect.
PROBLEM LIST
Acute: Asthma exacerbation.
PLAN
Administer a different steroid regimen and provide a combination medication of albuterol with ipratropium to manage her symptoms. Follow-up will be required to assess the efficacy of the treatment and adjust as necessary.
DIFFERENTIAL DIAGNOSIS
The Differential Diagnosis includes, in no particular order and is not limited to:
1. Asthma exacerbation
2. Chronic obstructive pulmonary disease (COPD)
3. Allergic reaction
4. Upper respiratory tract infection
5. Bronchitis
6. Pneumonia
7. Gastroesophageal reflux disease (GERD) causing respiratory symptoms
8. Pulmonary embolism
9. Vocal cord dysfunction
10. Anxiety-induced hyperventilation
CARE-UPDATE
07/12/25 - :45
Pt xray neg
CARE-UPDATE
07/12/25 - :46
Based on the provided substance abuse technician, there appear to be no updates or changes to the patients condition or treatment plan. No new information was captured from the conversation.
Disposition:
SUMMARY OF ENCOUNTER
The patient, a 40-year-old female with a history of asthma, presented to the emergency department with an acute exacerbation. Her symptoms included shortness of breath and wheezing due to running out of her albuterol and not taking her daily dose of
steroids. On arrival, she received a treatment, which alleviated her symptoms, and after an hour, she reported resolution of her symptoms.
DISPOSITION
The patient will be discharged home in improved condition.
ASSESSMENT
Asthma exacerbation, improved after treatment.
EMERGENCY TREATMENTS ADMINISTERED
Albuterol treatment upon arrival.
PLAN
The patient will receive prescriptions for albuterol and prednisone. She is advised to follow up with her family doctor in the morning.
PATIENT EDUCATION AND COUNSELING
The patient was informed about the importance of maintaining her asthma management regimen, specifically the regular use of her medications to prevent future exacerbations.
FOLLOW-UP INSTRUCTIONS
The patient should call her family doctor in the morning for follow-up.
MEDICATION RECONCILIATION
Prescriptions for albuterol and prednisone were provided.
MEDICAL DECISION MAKING
-Complexity of Data Reviewed: Chronic conditions affecting care include asthma exacerbation.
-Data:
Category 1
The patient was reviewed and monitored during her emergency visit, leading to the decision to administer asthma treatment.
-Risk:
Prescription medication was prescribed for asthma management.
DIAGNOSIS
Asthma exacerbation (ICD-10: J45.901).
Past History
Past History
ED Past Medical History: Asthma
ED Past Surgical History: None
Social History
Tobacco: Former smoker
Alcohol: Occasional
Drug: None
Personal: Single
Living: with family
Family History
Family History: Other (Noncontributory)
Phy Exam
Physical Exam
Physical Exam:
.
Course
Orders/Labs/Results
Orders:
Orders
07/12/25 18:07
Dexamethasone Pf [Decadron] 10 mg PO NOW STA
Ipratropium/Albuterol Sulfate [Duoneb] 3 ml INH R NOW ONE
CR Chest - 2 Views Urgent
Comment:
Reason For Exam: dyspnea
07/12/25 19:44
Albuterol Sulfate [Ventolin Nebules] 10 mg INH R NOW STA
Vital Signs
Initial and Last Documented VS:
Initial Vital Signs
Temp Pulse Resp BP Pulse Ox
98.4 F 118 18 201/151 93
07/12/25 18:01 07/12/25 18:01 07/12/25 18:01 07/12/25 18:01 07/12/25 18:01
Last Documented Vital Signs
Temp Pulse Resp BP Pulse Ox
98.4 F 99 14 146/90 93
07/12/25 18:01 07/12/25 20:15 07/12/25 20:15 07/12/25 19:00 07/12/25 20:46
*Pulse Oximetry
SaO2: 93
Oxygen Mode of Delivery: Room air
Patient hypoxic: no
*Critical Care Note
Total Time (30-74mins, 75-104mins- exclusive of procedures): Not Applicable
ED Attending Note
-
Portions of this chart may have been created with voice recognition software.� Occasional wrong word or��sound alike� substitutions may have occurred due to the inherent limitations of voice recognition software.
Discharge Plan
Departure
Patient Disposition: Home (Routine Discharge)
Date of Disposition: 07/12/25
Time of Disposition: 20:45
Patient with high blood pressure during this ER visit?: Yes
Condition: Good
Discharge Problem:
Acute asthma exacerbation
Instructions: Asthma, Adult (DC), BLOOD PRESSURE
Prescriptions:
New
albuterol sulfate 2.5 mg /3 mL (0.083 %) solution for nebulization
2.5 mg inhalation QID PRN (Reason: shortness of breath or wheezing) Qty: 90 0RF
prednisone 50 mg tablet
50 mg PO DAILY Qty: 4 0RF
No Action
albuterol sulfate [Ventolin HFA] 18 GM HFA aerosol inhaler
18 gm IH Q4HPRN PRN (Reason: wheezing) Qty: 1 0RF
albuterol sulfate
1 dose inhalation Q6H PRN (Reason: WHEEZING )
Rx Instructions:
ALBUTEROL NEB
prednisone 10 mg Tablet
See Rx Instructions .ROUTE .COMPLEX Qty: 45 0RF
Rx Instructions:
Take By Mouth:
50 mg daily x3 days, 40 mg daily x3 days,
30 mg daily x3 days, 20 mg daily x3 days,
10 mg daily x3 days
budesonide-formoterol [Symbicort] 160-4.5 mcg/actuation HFA aerosol inhaler
2 puff inhalation BID Qty: 10.2 0RF
famotidine [Pepcid] 20 mg tablet
20 mg PO DAILY Qty: 30 0RF
Referrals:
Hayley Alan CRNP [Family Provider, Family Practice]
Activity Restrictions/Additional Instructions:
Your prescriptions were sent electronically to the pharmacy that you specified.
Thank You for choosing [facility].
It was a pleasure meeting you and taking part in your care. We hope for your continued healing and wellness.
Please read discharge instructions in their entirety. However, they are for general education and may not describe your exact diagnosis at discharge. Information on your ER visit and medical conditions were discussed with you along with appropriate
follow up information...
If indicated, please take your medications as instructed and indicated on discharge paperwork.
Please schedule a follow up appointment as directed. Call to schedule an appointment
Please return to the emergency department with ANY change in, persisting, or worsening of symptoms. If any of your symptoms do not improve, or persist, or become more severe within 6-12 hours, please return to the emergency department for further
care.
Please return to the emergency department if you develop a headache, neck pain/stiffness, fever greater than 100.4F, chest pain, shortness of breath, persistent nausea, vomiting, slurred speech, difficulty walking, numbness/tingling, weakness, signs
of infection or any other symptoms that are worrisome to you.
If you have any questions or concerns please do not hesitate to call the Hospital at .
Interventions
Interventions:
*Risk Screen - Suicide Last Done: 07/12/25 18:01
*General Assessment Last Done: 07/12/25 18:01
*Neglect/Abuse Screening Last Done: 07/12/25 18:01
*ED COVID-19 Vaccine History Last Done: 07/12/25 21:21
*ED Influenza Vaccine History Last Done: 07/12/25 21:21
[facility] Risk Assessment Tool Last Done: 07/12/25 18:37
*Nursing Disposition Last Done: 07/12/25 21:21
ED- Cardiac Assessment Last Done: 07/12/25 18:21
ED- Pulmonary Assessment Last Done: 07/12/25 18:21
Discharge Date and Time
Discharge Date/Time: 07/12/25 21:22
Print Language: GHANAIAN
== END 2025-07-12 21:22 | disposition home or self-care (01) ==
LOC: EMR 17:58
PROVIDERS: EMERGENCY PHYSICIAN Student in an Organized Health Care Education/Training Program; FAMILY PHYSICIAN Nurse Practitioner Family
DX: J45.901 Unspecified asthma with (acute) exacerbation (principal); F12.90 Cannabis use, unspecified, uncomplicated; Z91.148 Patient's other noncompliance with medication regimen for other reason; Z87.891 Personal history of nicotine dependence
CPT/HCPCS: 94640; 99284; 71046